=== PATIENT | female | born 1965 | race Caucasian/White ===

== ENCOUNTER 2016-09-05 10:56 | Emergency (ER) | payer OTHER ==
[2016-09-05 12:12] LABS: BASO % 0.5 % (0.1-1.2); EOS # 0.1 10_X3_uL (0.0-0.4); EOS % 1.4 % (0.7-5.8); GRAN # 6.9 10_X3_uL (1.6-6.1); GRAN % 78.3 % (34.0-71.1); HEMATOCRIT 45.1 % (34-45); HEMOGLOBIN 14.8 g/dL (11.2-15.7); LYMPH # 1.2 10_X3_uL (1.2-3.7); LYMPH % 13.5 % (19.3-51.7); MEAN CORPUSCULAR HEMOGLOBIN 29.4 pg (27.0-33.0); MEAN CORPUSCULAR HGB CONC 32.8 g/dL (32.0-36.0); MEAN CORPUSCULAR VOLUME 89.7 fL (79-95); MEAN PLATELET VOLUME 10.1 fl (7.5-11.5); MONO # 0.6 10_X3_uL (0.2-0.9); MONO % 6.3 % (4.7-12.5); PLATELET COUNT 199 x10_3/uL (182-369); RED BLOOD COUNT 5.03 x10_6/uL (3.9-5.2); RED CELL DISTRIBUTION WIDTH 14.1 % (11.7-14.4); WHITE BLOOD COUNT 8.8 x10_3/uL (4.0-10.0)
[2016-09-05 12:23] LABS: BLOOD UREA NITROGEN 6 mg/dL (7-18); CALCIUM 8.2 mg/dL (8.7-10.7); CARBON DIOXIDE 30 mmol/L (21-32); CREATININE 0.6 mg/dL (0.6-1.3); GLUCOSE,RANDOM 93 mg/dL (70-99); POTASSIUM 3.7 mmol/L (3.5-5.1); SODIUM 140 mmol/L (136-145)
== END 2016-09-05 13:00 | disposition home or self-care (01) ==
LOC: ER 10:56
PROVIDERS: General Practice
DX: J44.9 Chronic obstructive pulmonary disease, unspecified (principal); J84.9 Interstitial pulmonary disease, unspecified; R06.2 Wheezing; R06.02 Shortness of breath; E66.01 Morbid (severe) obesity due to excess calories; F17.210 Nicotine dependence, cigarettes, uncomplicated; Z99.81 Dependence on supplemental oxygen; Z79.899 Other long term (current) drug therapy; Z88.0 Allergy status to penicillin; Z88.2 Allergy status to sulfonamides; Z88.5 Allergy status to narcotic agent
CPT/HCPCS: 36415; 71010; 80048; 83605; 85025; 87040; 93005; 94664; 96374; 96375; 99070; 99284-25; J2930

== ENCOUNTER 2016-09-22 06:43 | Emergency (ER) | payer OTHER ==
[2016-09-22 07:27] LABS: BASO % 0.2 % (0.1-1.2); EOS # 0.1 10_X3_uL (0.0-0.4); EOS % 1.1 % (0.7-5.8); GRAN # 10.6 10_X3_uL (1.6-6.1); GRAN % 79.9 % (34.0-71.1); HEMATOCRIT 51.1 % (34-45); HEMOGLOBIN 16.6 g/dL (11.2-15.7); LYMPH # 1.6 10_X3_uL (1.2-3.7); LYMPH % 12.3 % (19.3-51.7); MEAN CORPUSCULAR HEMOGLOBIN 29.8 pg (27.0-33.0); MEAN CORPUSCULAR HGB CONC 32.5 g/dL (32.0-36.0); MEAN CORPUSCULAR VOLUME 91.7 fL (79-95); MEAN PLATELET VOLUME 10.1 fl (7.5-11.5); MONO # 0.9 10_X3_uL (0.2-0.9); MONO % 6.5 % (4.7-12.5); PLATELET COUNT 200 x10_3/uL (182-369); RED BLOOD COUNT 5.57 x10_6/uL (3.9-5.2); RED CELL DISTRIBUTION WIDTH 15.1 % (11.7-14.4); WHITE BLOOD COUNT 13.2 x10_3/uL (4.0-10.0)
[2016-09-22 07:40] LABS: ARTERIAL BLD GAS O2 SATURATION 88.9 % (94-98); ARTERIAL BLOOD GAS BASE EXCESS 7.5 mmol/L (-2.0-3.0); ARTERIAL BLOOD GAS HCO3 32.9 mmol/L (22-26); ARTERIAL BLOOD GAS PCO2 49.2 mmHg (32-45); ARTERIAL BLOOD GAS pH 7.44 (7.35-7.45)
[2016-09-22 07:44] LABS: ALBUMIN 3.5 gm/dL (3.4-5.0); ALKALINE PHOSPHATASE 138 U/L (50-136); ALT/SGPT 24 U/L (3.5-33.9); AST/SGOT 19 U/L (7.04-26.96); BILIRUBIN,TOTAL 1.11 mg/dL (0.0-1.0); BLOOD UREA NITROGEN 6 mg/dL (7-18); CALCIUM 8.4 mg/dL (8.7-10.7); CARBON DIOXIDE 30 mmol/L (21-32); CREATININE < 0.5 mg/dL (0.6-1.3); GLUCOSE,RANDOM 127 mg/dL (70-99); POTASSIUM 3.6 mmol/L (3.5-5.1); SODIUM 136 mmol/L (136-145); TOTAL PROTEIN 6.2 gm/dL (6.4-8.2)
[2016-09-22 09:02] LABS: ARTERIAL BLD GAS O2 SATURATION 94.3 % (94-98); ARTERIAL BLOOD GAS HCO3 33.9 mmol/L (22-26); ARTERIAL BLOOD GAS PCO2 51.8 mmHg (32-45); ARTERIAL BLOOD GAS pH 7.43 (7.35-7.45)
[2016-09-22 11:30] LABS: ARTERIAL BLD GAS O2 SATURATION 97.7 % (94-98); ARTERIAL BLOOD GAS BASE EXCESS 7.2 mmol/L (-2.0-3.0); ARTERIAL BLOOD GAS HCO3 32.7 mmol/L (22-26); ARTERIAL BLOOD GAS PCO2 49.7 mmHg (32-45); ARTERIAL BLOOD GAS pH 7.43 (7.35-7.45)
== END 2016-09-22 12:17 | disposition left against medical advice (07) ==
LOC: ER 06:43
PROVIDERS: General Practice
DX: J44.9 Chronic obstructive pulmonary disease, unspecified (principal); R06.2 Wheezing; I25.2 Old myocardial infarction; R00.0 Tachycardia, unspecified; Z99.81 Dependence on supplemental oxygen; K21.9 Gastro-esophageal reflux disease without esophagitis; F17.210 Nicotine dependence, cigarettes, uncomplicated; Z79.899 Other long term (current) drug therapy; Z88.0 Allergy status to penicillin; Z88.2 Allergy status to sulfonamides; Z88.5 Allergy status to narcotic agent
CPT/HCPCS: 36415; 36600; 71010; 80053; 82803; 83605; 83880; 85025; 87040; 87070; 87400; 87880; 93005; 94664; 96365; 96375; 99070; 99285-25